=== PATIENT | male | born 1990 | race Hispanic/Latino ===

== ENCOUNTER 2019-05-04 11:13 | Emergency (ER) | payer SELFPAY ==
[2019-05-04] MEDS ORDERED: Adacel (T-DAP) 0.5 ML SYRINGE ONE (11:36)
== END 2019-05-04 12:44 | disposition home or self-care (01) ==
LOC: ERS 11:13
DX: S61.211A Laceration without foreign body of left index finger without damage to nail, initial encounter (principal); W45.8XXA Other foreign body or object entering through skin, initial encounter
CPT/HCPCS: 29130; 90471; 90715